=== PATIENT | male | born 1940 | race Caucasian/White ===

== ENCOUNTER 2022-06-24 17:47 | Observation (INO) | payer OTHER, MEDICARE ==
[2022-06-24 18:55] VITALS: TEMP 97.9; BMI 255.3
[2022-06-24 21:20] LABS: BASO % 0.5 % (0-2.0); EOS % 0.6 % (0-4.5); HEMATOCRIT 36.7 % (35.4-49); HEMOGLOBIN 12.5 GM/dL (11.7-16.9); LYMPH % 6.7 % (8-40); MCH 34.6 pg (25.7-33.7); MCHC 34.2 g/dl (32.0-35.9); MEAN CELL VOLUME 101.3 fl (80-96); MEAN PLT VOLUME 7.7 fl (7.5-11.1); MONO % 4.6 % (3.8-10.2); NEUT % 87.6 % (42.8-82.8); PLATELET COUNT 292 10^3/uL (134-434); RBC 3.62 M/mm3 (4.00-5.60); RDW 12.8 % (11.9-15.9); WHITE BLOOD COUNT 6.9 K/mm3 (4.0-10.0)
[2022-06-24 21:43] LABS: ALBUMIN 3.4 g/dl (3.4-5.0); BLOOD UREA NITROGEN 40.6 mg/dL (7-18); CALCIUM 8.8 mg/dL (8.5-10.1)
[2022-06-24 21:46] LABS: CREATININE 3.3 mg/dL (0.55-1.3)
[2022-06-24 21:48] LABS: BILIRUBIN,TOTAL 0.3 mg/dL (0.2-1); TOT PROT 7.6 g/dl (6.4-8.2)
[2022-06-25] MEDS ORDERED: HEPARIN NA (PORCINE) 5,000 UNITS/ML 1ML VIAL SQ SCH (06:00)
[2022-06-25 06:27] LABS: BASO % 0.5 % (0-2.0); EOS % 2.3 % (0-4.5); HEMATOCRIT 34.5 % (35.4-49); HEMOGLOBIN 11.3 GM/dL (11.7-16.9); LYMPH % 12.8 % (8-40); MCH 33.2 pg (25.7-33.7); MCHC 32.8 g/dl (32.0-35.9); MEAN CELL VOLUME 101.4 fl (80-96); MEAN PLT VOLUME 8.2 fl (7.5-11.1); MONO % 9.4 % (3.8-10.2); PLATELET COUNT 276 10^3/uL (134-434); RBC 3.41 M/mm3 (4.00-5.60); RDW 12.7 % (11.9-15.9); WHITE BLOOD COUNT 5.9 K/mm3 (4.0-10.0)
[2022-06-25 06:42] LABS: CALCIUM 8.2 mg/dL (8.5-10.1); MAGNESIUM 2.1 mg/dL (1.8-2.4)
[2022-06-25 06:43] LABS: ALBUMIN 3.1 g/dl (3.4-5.0)
[2022-06-25 06:45] LABS: CREATININE 3.7 mg/dL (0.55-1.3); PHOSPHOROUS 3.3 mg/dL (2.5-4.9)
[2022-06-25 06:47] LABS: BILIRUBIN,TOTAL 0.4 mg/dL (0.2-1); TOT PROT 6.6 g/dl (6.4-8.2)
[2022-06-25] MEDS ORDERED: HEPARIN NA (PORCINE) 5,000 UNITS/ML 1ML VIAL ONE (06:49)
[2022-06-25 09:22] VITALS: BP 126/81; PULSE 70; RESP 20
[2022-06-25] MEDS ORDERED: TORSEMIDE 20 MG TABLET (FP) PO SCH (10:00)
[2022-06-25] MEDS ORDERED: DUTASTERIDE 0.5 MG CAP (FP) PO SCH (10:00)
[2022-06-25] MEDS ORDERED: ATORVASTATIN CA 20 MG TABLET (FP) PO SCH (22:00)
== END 2022-06-25 12:30 | disposition home or self-care (01) ==
LOC: JER 17:47 → JERBED 22:02
PROVIDERS: ADMIT Internal Medicine; ATTEND Internal Medicine
PROC: 3E023GC Introduction of Other Therapeutic Substance into Muscle, Percutaneous Approach (ICD-10-PCS; principal; 2022-06-24)
DX: I12.0 Hypertensive chronic kidney disease with stage 5 chronic kidney disease or end stage renal disease (principal); N18.6 End stage renal disease; E87.5 Hyperkalemia; E78.5 Hyperlipidemia, unspecified; Z29.8 Encounter for other specified prophylactic measures; R55 Syncope and collapse; Z91.018 Allergy to other foods; Z91.012 Allergy to eggs; Z85.038 Personal history of other malignant neoplasm of large intestine; I95.9 Hypotension, unspecified
CPT/HCPCS: 0241U-QW; 36415; 71045-TC-FY; 80053; 83735; 84100; 84484; 85025; 93005; 93010; 96372; 99285-25; G0378; J1644

== ENCOUNTER 2023-07-30 14:15 | Inpatient (IN) | payer OTHER, MEDICARE ==
[2023-07-30 14:56] VITALS: BMI 25.4
[2023-07-30] MEDS ORDERED: SODIUM CHLORIDE 0.9% 500 ML INFUS.BAG IV ONE (15:24)
[2023-07-30] MEDS ORDERED: ACETAMINOPHEN 1000 MG/100 ML BAG IVPB ONE (15:30)
[2023-07-30 16:18] LABS: BASO % 0.2 % (0-2.0); EOS % 0.1 % (0-4.5); HEMATOCRIT 30.4 % (35.4-49); HEMOGLOBIN 10.2 GM/dL (11.7-16.9); LYMPH % 4.2 % (8-40); MCH 33.6 pg (25.7-33.7); MCHC 33.7 g/dl (32.0-35.9); MEAN CELL VOLUME 99.8 fl (80-96); MEAN PLT VOLUME 8.5 fl (7.5-11.1); MONO % 9.8 % (3.8-10.2); NEUT % 85.7 % (42.8-82.8); PLATELET COUNT 184 10^3/uL (134-434); RBC 3.04 M/mm3 (4.00-5.60); RDW 12.8 % (11.9-15.9); VENOUS BASE EXCESS 2.7 mmol/L (-2-2); VENOUS O2 SATURATION 29.2 % (70-80); VENOUS PCO2 46.3 mmHg (38-52); VENOUS PH 7.402 (7.310-7.410); WHITE BLOOD COUNT 5.7 K/mm3 (4.0-10.0)
[2023-07-30 16:28] LABS: INR 1.12 (0.83-1.09)
[2023-07-30] MEDS ORDERED: ACETAMINOPHEN INJECTION 100 ML IVPB ONE (16:30)
[2023-07-30 16:31] LABS: ACTIVATED PTT 28.6 SECONDS (25.2-36.5)
[2023-07-30 16:43] LABS: POTASSIUM 3.7 mmol/L (3.5-5.1)
[2023-07-30] MEDS ORDERED: VANCOMYCIN 1,000 MG in DEXTROSE 5%-WATER - 250 ML IVPB ONE (16:43)
[2023-07-30] MEDS ORDERED: PIPERACILLIN/TAZOB 4.5 GM 4.5 GM in DEXTROSE 5%-WATER 100 ML IVPB ONE (16:43)
[2023-07-30 16:45] LABS: CALCIUM 8.3 mg/dL (8.5-10.1)
[2023-07-30 16:46] LABS: ALBUMIN 2.8 g/dl (3.4-5.0); BLOOD UREA NITROGEN 24.5 mg/dL (7-18)
[2023-07-30 16:49] LABS: CREATININE 3.2 mg/dL (0.55-1.3)
[2023-07-30 16:50] LABS: TOT PROT 6.4 g/dl (6.4-8.2)
[2023-07-30 16:51] LABS: BILIRUBIN,TOTAL 0.3 mg/dL (0.2-1)
[2023-07-30] MEDS ORDERED: PIPERACILLIN/TAZOB 4.5 GM 4.5 GM/100 ML BAG IVPB ONE (16:53)
[2023-07-30] MEDS ORDERED: VANCOMYCIN 1 GRAM (PRE-DOCKED) 1,000 MG/250 ML BAG IVPB ONE (17:09)
[2023-07-30] MEDS ORDERED: ATENOLOL 25 MG TABLET (FP) PO SCH (22:00)
[2023-07-30] MEDS ORDERED: HEPARIN NA (PORCINE) 5,000 UNITS/ML 1ML VIAL SQ SCH (22:00)
[2023-07-30] MEDS ORDERED: REMDESIVIR 200 MG in SODIUM CHLORIDE 250 ML IVPB ONE (22:18)
[2023-07-30] MEDS ORDERED: ALBUTEROL SO4 HFA INHALER IH PRN (22:19)
[2023-07-30] MEDS ORDERED: ATORVASTATIN CA 20 MG TABLET (FP) ONE (22:20)
[2023-07-30] MEDS ORDERED: AZITHROMYCIN 250 MG TABLET PO ONE (22:25)
[2023-07-30] MEDS: ATORVASTATIN CA 20 MG TABLET (FP) PO SCH (22:29)
[2023-07-30] MEDS ORDERED: DEXAMETHASONE 4 MG TABLET (FP) PO ONE (23:03)
[2023-07-31] MEDS ORDERED: AZITHROMYCIN 500 MG TABLET ONE
[2023-07-31] MEDS: ALBUTEROL SO4 HFA INHALER IH SCH ×5 (00:18→15:37)
[2023-07-31 00:56] LABS: EPI CELLS 6 /uL (0-25.1); HYALINE CASTS 1 /uL (0-3.1); URINE APPEARANCE CLEAR; URINE BACTERIA 16 /uL (0-1359); URINE BILIRUBIN NEGATIVE (NEGATIVE); URINE COLOR YELLOW; URINE GLUCOSE (UA) 1+ (NEGATIVE); URINE KETONE NEGATIVE (NEGATIVE); URINE LEUK ESTERASE NEGATIVE (NEGATIVE); URINE NITRITE NEGATIVE (NEGATIVE); URINE PROTEIN 4+ (NEGATIVE); URINE RBC 15 /uL (0-23.9); URINE UROBILINOGEN 0.2 mg/dL (0.2-1.0); URINE WBC 5 /uL (0-25.8)
[2023-07-31] MEDS ORDERED: ALBUTEROL SO4 HFA INHALER IH ONE (08:22)
[2023-07-31 08:36] LABS: HEMATOCRIT 28.3 % (35.4-49); HEMOGLOBIN 9.5 GM/dL (11.7-16.9); MCH 34.1 pg (25.7-33.7); MCHC 33.7 g/dl (32.0-35.9); MEAN CELL VOLUME 101.1 fl (80-96); MEAN PLT VOLUME 8.2 fl (7.5-11.1); PLATELET COUNT 163 10^3/uL (134-434); RDW 12.8 % (11.9-15.9); WHITE BLOOD COUNT 3.6 K/mm3 (4.0-10.0)
[2023-07-31] MEDS ORDERED: CEFTRIAXONE 1 GM/50 ML BAG ONE (09:43)
[2023-07-31] MEDS: DUTASTERIDE 0.5 MG CAP (FP) PO SCH (09:54)
[2023-07-31] MEDS: AZITHROMYCIN 250 MG TABLET PO SCH (09:55)
[2023-07-31] MEDS: ATENOLOL 25 MG TABLET (FP) PO SCH ×2 (09:55→22:31)
[2023-07-31] MEDS: APIXABAN 2.5 MG TABLET PO SCH ×2 (09:55→22:31)
[2023-07-31] MEDS: CEFTRIAXONE 1 GM in DEXTROSE 5%-WATER - 50 ML IVPB SCH (09:55)
[2023-07-31] MEDS ORDERED: DEXAMETHASONE 4 MG TABLET (FP) PO SCH (10:00)
[2023-07-31] MEDS ORDERED: APIXABAN 5 MG TABLET PO SCH (10:00)
[2023-07-31] MEDS ORDERED: HEPARIN NA (PORCINE) 5,000 UNITS/ML 1ML VIAL SQ SCH (10:00)
[2023-07-31 11:33] LABS: POTASSIUM 4.1 mmol/L (3.5-5.1)
[2023-07-31 12:11] LABS: CALCIUM 7.7 mg/dL (8.5-10.1)
[2023-07-31 12:12] LABS: ALBUMIN 2.5 g/dl (3.4-5.0); BLOOD UREA NITROGEN 37.5 mg/dL (7-18)
[2023-07-31 12:14] LABS: CREATININE 4.2 mg/dL (0.55-1.3)
[2023-07-31 12:15] LABS: PHOSPHOROUS 3.6 mg/dL (2.5-4.9)
[2023-07-31 12:16] LABS: BILIRUBIN,TOTAL 0.5 mg/dL (0.2-1)
[2023-07-31] MEDS: ATORVASTATIN CA 20 MG TABLET (FP) PO SCH (22:31)
[2023-07-31] MEDS: REMDESIVIR 100 MG in SODIUM CHLORIDE 250 ML IVPB SCH (23:44)
[2023-08-01] MEDS: ALBUTEROL SO4 HFA INHALER IH SCH ×4 (06:29→21:40)
[2023-08-01] MEDS: APIXABAN 2.5 MG TABLET PO SCH ×2 (10:56→21:36)
[2023-08-01] MEDS: ATENOLOL 25 MG TABLET (FP) PO SCH ×3 (10:56→21:36)
[2023-08-01] MEDS: AZITHROMYCIN 250 MG TABLET PO SCH (10:56)
[2023-08-01] MEDS: CEFTRIAXONE 1 GM in DEXTROSE 5%-WATER - 50 ML IVPB SCH (10:56)
[2023-08-01] MEDS ORDERED: SODIUM CHLORIDE 250 ML IV PRN (12:38)
[2023-08-01] MEDS ORDERED: EPOETIN ALFA-EPBX 4,000 UNIT/ML VIAL SQ ONE (12:45)
[2023-08-01 14:37] LABS: HEMATOCRIT 29.5 % (35.4-49); MEAN CELL VOLUME 100.2 fl (80-96); MEAN PLT VOLUME 8.7 fl (7.5-11.1); PLATELET COUNT 193 10^3/uL (134-434); RBC 2.95 M/mm3 (4.00-5.60); RDW 12.7 % (11.9-15.9); WHITE BLOOD COUNT 8.3 K/mm3 (4.0-10.0)
[2023-08-01 15:01] LABS: POTASSIUM 4.3 mmol/L (3.5-5.1)
[2023-08-01 15:02] LABS: CALCIUM 7.6 mg/dL (8.5-10.1)
[2023-08-01 15:05] LABS: BLOOD UREA NITROGEN 64.6 mg/dL (7-18); CREATININE 5.5 mg/dL (0.55-1.3)
[2023-08-01] MEDS: DUTASTERIDE 0.5 MG CAP (FP) PO SCH (17:51)
[2023-08-01] MEDS: ATORVASTATIN CA 20 MG TABLET (FP) PO SCH (21:36)
[2023-08-01] MEDS: REMDESIVIR 100 MG in SODIUM CHLORIDE 250 ML IVPB SCH (22:59)
[2023-08-02] MEDS: ALBUTEROL SO4 HFA INHALER IH SCH (06:52)
[2023-08-02 07:38] LABS: BASO % 0.2 % (0-2.0); HEMATOCRIT 29.2 % (35.4-49); LYMPH % 11.2 % (8-40); MCH 34.2 pg (25.7-33.7); MCHC 34.1 g/dl (32.0-35.9); MEAN CELL VOLUME 100.1 fl (80-96); MEAN PLT VOLUME 8.9 fl (7.5-11.1); MONO % 8.9 % (3.8-10.2); NEUT % 79.7 % (42.8-82.8); PLATELET COUNT 172 10^3/uL (134-434); RBC 2.92 M/mm3 (4.00-5.60); RDW 12.7 % (11.9-15.9); WHITE BLOOD COUNT 5.8 K/mm3 (4.0-10.0)
[2023-08-02 07:47] LABS: POTASSIUM 3.6 mmol/L (3.5-5.1)
[2023-08-02 07:57] LABS: CALCIUM 7.4 mg/dL (8.5-10.1)
[2023-08-02 08:01] LABS: CREATININE 3.5 mg/dL (0.55-1.3)
[2023-08-02] MEDS: APIXABAN 2.5 MG TABLET PO SCH (12:48)
[2023-08-02] MEDS: ATENOLOL 25 MG TABLET (FP) PO SCH (12:48)
[2023-08-02] MEDS: AZITHROMYCIN 250 MG TABLET PO SCH (12:48)
[2023-08-02] MEDS: DUTASTERIDE 0.5 MG CAP (FP) PO SCH (12:48)
[2023-08-02] MEDS: CEFTRIAXONE 1 GM in DEXTROSE 5%-WATER - 50 ML IVPB SCH (12:49)
[2023-08-02 18:16] VITALS: BP 147/84; PULSE 65; RESP 16; TEMP 98.3
== END 2023-08-02 20:35 | disposition home health service (06) | DRG 177 ==
LOC: JER 14:15 → JERBED 17:23 → J4S 07-31 15:57
PROVIDERS: ADMIT Internal Medicine; ATTEND Internal Medicine
PROC: 5A1D70Z Performance of Urinary Filtration, Intermittent, Less than 6 Hours Per Day (ICD-10-PCS; principal; 2023-08-01)
DX: U07.1 COVID-19 (principal); J12.82 Pneumonia due to coronavirus disease 2019; N18.6 End stage renal disease; I12.0 Hypertensive chronic kidney disease with stage 5 chronic kidney disease or end stage renal disease; I48.91 Unspecified atrial fibrillation; E78.5 Hyperlipidemia, unspecified; N40.0 Benign prostatic hyperplasia without lower urinary tract symptoms; Z85.038 Personal history of other malignant neoplasm of large intestine; Z85.46 Personal history of malignant neoplasm of prostate; Z99.2 Dependence on renal dialysis
CPT/HCPCS: 0241U-QW; 36415; 71045-TC-FY; 71250-TC; 80048; 80053; 81003; 82550; 82553; 82803; 82962; 83605; 83735; 84100; 84484; 85025; 85027; 85610; 85730; 86704; 86803; 86850; 86900; 86901; 87040; 87086; 87340; 87517; 87899; 93005; 93010; 97116-GP; 97162-GP; 99285-25; J0248; Q5106